=== PATIENT | male | born 1955 | race Caucasian/White ===

== ENCOUNTER → 2020-05-16 09:36 | Outpatient (CLI) | payer MEDICARE, OTHER, SELFPAY ==
[2020-05-19 10:04] LABS: COVID19 Sendout Not Detected (Not Detect)
== END ==
PROVIDERS: PCP Family Medicine; Visit Provider Physician Assistant
DX: Z11.59 Encounter for screening for other viral diseases (principal)
CPT/HCPCS: 87635

== ENCOUNTER 2020-05-19 12:56 | Day surgery (SDC) | payer MEDICARE, OTHER, SELFPAY ==
--- NOTE | 2020-05-19 | PATH_ITS ---
[facility] Accession Number: [id number] . 01 Material submitted: . PART A: colon - TRANSVERSE COLON 6MM PART B: sigmoid colon - SIGMOID POLYP 1CM . 02 Diagnosis: A. Transverse Colon Polyp, 6 MM, Biopsy: Tubular adenoma. . B. Sigmoid Colon Polyp, 1 CM, Biopsy: Tubulovillous adenoma. Negative for high-grade dysplasia or malignancy. [facility] 05/21/2020 1558 Local . 02 Electronically signed: . Deshawn Camargo MD, PhD, Pathologist NPI- [id number] . 01 Gross description: . A. Specimen A is received in formalin, labeled transverse polyp and consists of two carrillo-pink fragments of soft tissue, measuring 0.6 x 0.4 x 0.2 cm in aggregate. The specimen is entirely submitted in cassette A1. B. Specimen B is received in formalin, labeled sigmoid polyp and consists of a 0.7 x 0.6 x 0.4 cm carrillo-pink polyp. The margin is inked blue. The specimen is bisected and entirely submitted in cassette B1. ([id number]) /[facility] 05/20/2020 1541 Local . 02 Pathologist provided ICD-10: D12.3, D12.5 . 02 CPT . 878610, 184204 Performed at: 01 [facility] [address] [facility], [place], [place] [id number] MD Cody Dillard MD Phone: [phone] Performed at: 02 [facility] [address] [place], [place] [id number] MD Conchis Lorenzo MD Phone: [phone]
--- NOTE | 2020-05-19 12:21 | PM.HP.1 ---
History of Present Illness History of Present Illness Date Patient Seen: 05/19/20 Chief complaint: [facility] Narrative: 65 year old male comes in today for consideration of a screening colonoscopy. Last colonoscopy in 2014, significant for two tubular adenomas in the ascending colon and a hyperplastic polyp in the sigmoid colon. Prior to that has had 2 lifetime colonoscopies, records unavailable at time of dictation, reported polyps. Also had sigmoid diverticulosis and external hemorrhoids at his 2015 colonscopy. There have been no lower GI symptoms suggesting disease such as change in bowel habits, bleeding, abdominal pain or anemia. Family history of fatal colon cancer and his cousin in his 40s. Overall health issues have been stable, including no major cardiac events for at least 6 weeks. Past medical history: External hemorrhoids Hyperlipidemia Arthritis Past surgical history: Hemorrhoidectomy, 2009, 2017 Turbinectomy, 1999 Family History: Non contributory Social History: . 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 Meds Home Medications and Allergies Home Medications Medication Instructions Recorded Confirmed Type omega 8-mmq-asp-fish oil [Fish Oil] 1,000 mg PO Q DAY #0 12/23/16 05/19/20 History Allergies Allergy/AdvReac Type Severity Reaction Status Date / Time oxycodone [OXYCODONE] Allergy Intermediate body Verified 05/19/20 13:37 turned red and face swelled Review of Systems Review of Systems ROS: Yes All systems reviewed with the patient and are negative except as otherwise documented Exam Narrative Exam Narrative: GENERAL: Alert and oriented, appearing stated age and in no acute distress. HEENT: Head normocephalic/atraumatic. Pupils equal, round, and reactive to light and accomodation. Extraocular muscles intact. Tympanic membranes clear. Nasal mucosa moist, septum midline. Oral mucosa moist, no lesions. Neck soft and supple, no lymphadenopathy. LUNGS: Clear to ausculation bilaterally, no wheezes, rhonchi or rales. CV: Normal S1 and S2 with regular rate and rhythm, no audible murmurs, rubs or gallops. ABDOMEN: Soft, non-tender, non-distended, no organomegaly. Positive bowel sounds. EXTREMITIES: No clubbing, cyanosis, or edema. NEURO: Cranial nerves II through XII grossly intact, no focal deficits. PSYCH: Alert and oriented x 3. SKIN: No concerning lesions. Assessment & Plan Assessment & Plan narrative: 1. History of colon polyps 2. Family history of colon cancer, cousin, age < 50, fatal 3. Screening for colon cancer Plan for colonoscopy. The nature and character of the procedure as well as anticipated results were discussed. The possibility of not completing the procedure was also discussed. Possible complications including aspiration pneumonia, bleeding, perforation and reaction to medications either for sedation or preparation and missed lesions were discussed. Questions were answered and proceeding to the colonoscopy was elected. Informed consent signed. I sincerely appreciate the referral allowing me to participate in this patient's care. Please contact me with any questions or concerns.
--- NOTE | 2020-05-19 12:28 | PM.OP.ENDO ---
Operative Date/Time/Diagnoses Date of procedure: 05/19/20 Procedure Notes SCOAP/Timeout: 2:55 p.m. Procedure in detail: ENDOSCOPIST: Petty Ramírez MD Sedation RN: Asha Fraga RN Sedation start time: 3:00 p.m. Sedation end time: 3:26 p.m. PROCEDURE: Colonoscopy INDICATIONS: 1. History of colon polyps 2. Family history of colon cancer < age 50, cousin, fatal 3. Screening for colon cancer MEDICATION: Levsin 0.125 mg sublingual, incremental doses of Versed and fentanyl until appropriate level sedation achieved. ASA CLASS: 2 CECAL WITHDRAWAL TIME: 19 minutes COMPLICATIONS: None. EXTENT OF PROCEDURE: Cecum. QUALITY OF PREP: Good with portions of liquid stool. PROCEDURE: Prior to insertion of the colonoscope, a digital rectal examination was accomplished with circumferential palpation of the distal rectal mucosa without significant findings being noted. The high-definition pediatric colonoscope was passed into the rectum in the usual fashion and advanced over to the cecum without difficulty. The ileocecal valve, appendiceal stoma, and medial wall all could be inspected and no abnormalities were seen. ASCENDING COLON: As the colonoscope was withdrawn, care was taken to expose and inspect the haustral folds no abnormalities were seen. HEPATIC FLEXURE: Normal, no polyps, diverticula or other abnormalities. TRANSVERSE COLON: 6 mm polyp seen and removed with cold biopsy forceps, excellent hemostasis. Otherwise, no diverticula or other abnormalities. DESCENDING COLON: Normal, no polyps, diverticula or other abnormalities. SIGMOID COLON: 1 cm pedunculated polyp lifted with methylene blue, hemoclip placed and polyp removed with cold snare. Otherwise, minor diverticulosis. RECTUM: Normal. J maneuver was produced. There was no significant perianal disease. The J maneuver was broken. The remainder of the rectum was inspected and there was external hemorrhoid disease, nonthrombosed. The scope was withdrawn. IMPRESSION: 1. Transverse polyp x1, 6 mm, removed with cold biopsy forceps 2. Sigmoid polyp x1, 1 cm, lifted with methylene blue, hemoclip placed at pedunculated stock and polyp removed with cold snare 3. Sigmoid diverticulosis, minor 4. External hemorrhoid disease, non thrombosed PLAN: 1. Follow-up in clinic status post pathology results. The possibility of a missed lesion including a malignancy has been discussed with the patient previously. Potential alarm symptoms have been discussed and should be reported immediately.
[2020-05-19 13:38] VITALS: BMI 24.3
[2020-05-19 14:00] VITALS: BP 120/81; PULSE 56; RESP 20; TEMP 36.9; O2SAT 98
[2020-05-19] MEDS: HYOSCYAMINE 0.125 MG TABLET PO (14:04)
[2020-05-19] MEDS: LACTATED RINGERS 1,000 ML 200 ML IV (14:04)
[2020-05-19] MEDS: MIDAZOLAM 5 MG/5 ML VIAL IV (14:58)
[2020-05-19] MEDS: fentaNYL 250 MCG/5 ML INJ IV (15:03)
[2020-05-19] MEDS: METHYLENE BLUE 50 MG/10 ML VIAL INJ (15:25)
[2020-05-19 15:30] VITALS: BP 100/65; PULSE 57; RESP 16; TEMP 36.3; O2SAT 99
[2020-05-19 15:35] VITALS: BP 116/72; PULSE 60; RESP 16; O2SAT 98
[2020-05-19 15:40] VITALS: BP 116/78; PULSE 57; RESP 12; O2SAT 98
[2020-05-19 15:46] VITALS: BP 115/79; PULSE 50; RESP 12; TEMP 37; O2SAT 99
[2020-05-19 15:57] VITALS: BP 112/72; PULSE 55; RESP 16; TEMP 36.7; O2SAT 100
== END 2020-05-19 16:09 | disposition home or self-care (01) ==
PROVIDERS: PCP Student in an Organized Health Care Education/Training Program; Referring Provider Student in an Organized Health Care Education/Training Program; Visit Provider Student in an Organized Health Care Education/Training Program
PROC: 0DJD8ZZ Inspection of Lower Intestinal Tract, Via Natural or Artificial Opening Endoscopic (ICD-10-PCS; CPT 45378; principal; 2020-05-19 14:30)
DX: Z12.11 Encounter for screening for malignant neoplasm of colon (principal); Z86.010 Personal history of colon polyps; K64.4 Residual hemorrhoidal skin tags; D12.3 Benign neoplasm of transverse colon; D12.5 Benign neoplasm of sigmoid colon
CPT/HCPCS: 45385; 45381; 45380; J2250; J3010; Q9968

== ENCOUNTER → 2021-06-30 10:14 | Outpatient (CLI) | payer MEDICARE, OTHER, SELFPAY ==
[2021-06-30 11:07] LABS: COVID19 -Nasal RAPID Negative (Negative)
== END ==
PROVIDERS: PCP Family Medicine; Referring Provider Specialist; Visit Provider Specialist
DX: Z01.812 Encounter for preprocedural laboratory examination (principal); Z20.822 Contact with and (suspected) exposure to COVID-19
CPT/HCPCS: 87635; C9803

== ENCOUNTER 2021-07-01 13:27 | Day surgery (SDC) | payer MEDICARE, OTHER, SELFPAY ==
[2021-07-01] VITALS (9 sets, daily range): BP systolic 89–131; BP diastolic 60–87; PULSE 53–86; RESP 10–16; TEMP 35.8–36.3; O2SAT 95–100; BMI 26.6
--- NOTE | 2021-07-01 14:33 | PM.PREOP ---
Pre-operative Note COVID-19 COVID-19 status: Negative Result date/Date tested (Pos, Neg/Pending): 06/30/21 Interval Note History & Physical reviewed/Exam performed by Physician: Yes Changes to H&P: No
--- NOTE | 2021-07-01 15:01 | SUR.OPER ---
Supine on padded OR bed, head on pillow, arms secured on padded arm boards at <90 degrees abduction, legs uncrossed, safety belt at thigh, tape over blanket over lower legs.
[2021-07-01] MEDS: CEFAZOLIN 1 GM VIAL 2 GM IV (15:05)
[2021-07-01] MEDS: BUPIVACAINE 0.5% (PF) VIAL 30 ML INJ (15:19)
[2021-07-01] MEDS: LACTATED RINGERS 1,000 ML 42 ML IV (16:20)
--- NOTE | 2021-07-01 16:45 | PM.OP.1 ---
Operative Date/Time/Diagnoses Date of procedure: 07/01/21 Time of procedure: 16:45 Pre-op diagnosis: Reducible right inguinal hernia Post-op diagnosis: same (Direct) Procedure & Clinicians Procedure: Repair with plug and patch technique Same procedure as scheduled: Yes Indications: Symptomatic right inguinal hernia Surgeon: Manan Crane Click Yes if Unassisted: Yes Anesthesia Type: General Operative Notes Findings: Direct hernia. Large lipoma of the cord. Closure Type: primary Specimen(s): none sent Prosthetic devices, grafts, tissues, transplants, or devices: Large plug and patch Estimated Blood Loss (mL): 10 Blood products transfused: none Procedure in detail: The patient was placed supine on the operating room table and underwent general LMA anesthesia. He was prepped and draped in the usual fashion. A transverse incision was made overlying the right internal ring and carried down to the level of the external oblique. The external oblique was opened parallel with its fibers through the external ring. The cord structures were elevated. The cremaster was opened proximally and search made for an indirect sac. No indirect sac was found but 2 large lipomas of the cord were found and from surrounding cord structures. The tissue was opened to make sure there was no indirect sac and none was found. They were ligated the level the deep active gastric vessels with 3-0 Vicryl suture ligature and the distal portion removed. A large plug was placed in the defect created by these large lipomas and tacked into place with interrupted Ethibond suture. The cremaster was reapproximated with 3-0 Vicryl. Floor was examined and was found to be generally weakened.. A patch was placed across the floor and tacked at the pubic tubercle, the posterior lamella of the anterior rectus sheath, the ilioinguinal ligament, and superior lateral to the cord. The opening was modified as necessary to prevent tight constriction of the cord. Sutures of 0 Ethibond were used to secure the mesh. The external oblique was closed with a running 3 0 Vicryl. The subcu was closed with interrupted 4-0 Vicryl. The skin was closed with a running 4 0 Vicryl subcuticular stitch and Steri-Strips. Dressing was applied, the patient was awakened, and the patient was taken to the recovery area in good condition. Complications: none Post-operative Condition: stable Disposition: PACU
== END 2021-07-01 17:30 | disposition home or self-care (01) ==
PROVIDERS: PCP Family Medicine; Referring Provider Specialist; Visit Provider Specialist
PROC: (CPT 49505; principal; 2021-07-01 15:00)
DX: K40.90 Unilateral inguinal hernia, without obstruction or gangrene, not specified as recurrent (principal); D17.6 Benign lipomatous neoplasm of spermatic cord
CPT/HCPCS: 49505; C1781; J0690; J1100; J2250; J2405; J2704; J3010

== ENCOUNTER → 2022-09-19 12:44 | Outpatient (CLI) | payer MEDICARE, OTHER, SELFPAY ==
--- NOTE | 2022-09-19 13:12 | DI.MRI.S_ITS ---
PROCEDURE: MR SHOULDER RT WO CON INDICATIONS: Pain in right shoulder TECHNIQUE: Noncontrast oblique coronal T2 fast spin echo with fat saturation, oblique sagittal T1 spin echo and T2 fast spin echo with fat saturation, axial T1 spin echo and T2 fast spin echo with fat saturation through the shoulder. COMPARISON: None. FINDINGS: Image quality: Good Rotator cuff: Bulk: No significant atrophy Teres minor: Intact Supraspinatus: Moderate tendinosis and partial-thickness tears of the both the bursal and articular surfaces. Infraspinatus: Tendinosis. Interstitial tearing is apparent. Subscapularis: Tendinosis. Bones and bursae: GH joint: No subchondral edema or cystic changes. Mild to moderate chondral thinning. AC joint: Moderate degenerative changes Humeral head: Intact Scapula and acromion: Normal morphology Bursa: Mild to moderate bursitis Capsule: Labrum: Suspected sublabral recess and small SLAP tear, extending to the region of the biceps anchor. Tearing of the posterior inferior labrum with small paralabral cysts, around 5-8 o'clock. There is also a suspected sublabral foramen. Long head biceps tendon: Normally situated. There is intra-articular tendinosis. IGHL: Inferior paralabral cysts as above. Rotator interval: Preserved fat signal Soft tissues: No axillary adenopathy. Lungs are not well seen. IMPRESSION: Xgnx-oc-vrbzxlyn glenohumeral and moderate acromioclavicular degenerative changes. Partial thickness supraspinatus tears, and rotator cuff tendinosis. There are inferior paralabral cysts, likely secondary to tear centered in the posterior inferior labrum, possibly also extending to the anterior inferior labrum. Probable sublabral foramen and recess likely with a superimposed SLAP tear. These findings would be better evaluated with arthrogram if necessary. Dictated by: Alex Montague M.D. on 09/20/2022 at 9:45 Approved by: lAex Montague M.D. on 09/20/2022 at 9:51
== END ==
PROVIDERS: PCP Family Medicine; Referring Provider Family Medicine; Visit Provider Family Medicine
DX: M75.111 Incomplete rotator cuff tear or rupture of right shoulder, not specified as traumatic (principal); S43.431A Superior glenoid labrum lesion of right shoulder, initial encounter; M25.511 Pain in right shoulder
CPT/HCPCS: 73221